=== PATIENT | male | born 1960 | race Caucasian/White ===

== ENCOUNTER 2022-05-12 02:13 | Emergency (ER) | payer MEDICAID ==
[~2022-05-12] VITALS: Ht 175.3 cm; Wt 96.4 kg
[2022-05-12 02:45] LABS: HEMATOCRIT 42.7 % (42.0-52.0); INR 1.3 (0.8-3.0); MEAN CELL VOLUME 93 fl (80.0-100.0); MEAN CORPUSCULAR HEMOGLOBIN 31 pg (27-31); MEAN CORPUSCULAR HGB CONC 33 g/dl (33.0-37.0); MEAN PLATELET VOLUME 10.4 fl (7.4-10.4); PLATELET COUNT 278 K/mm3 (130-400); PROTHROMBIN TIME 15.3 SECONDS (9.7-12.8); RED BLOOD COUNT 4.58 M/mm3 (4.20-5.60); REDCELL DISTRIBUTION WIDTH-CV 13.2 % (11.5-14.5)
[2022-05-12 02:58] LABS: ALANINE AMINOTRANSFERASE 17 U/L (0-55); ALBUMIN 3.1 gm/dL (3.4-4.8); ALKALINE PHOSPHATASE 96 U/L (40-150); ANION GAP 17 mmol/L (7-16); AST,SGOT 18 U/L (5-34); BLOOD UREA NITROGEN 49 mg/dL (8-26); CALCIUM 9.4 mg/dL (8.4-10.2); CARBON DIOXIDE 23 mmol/L (23-31); CHLORIDE 98 mmol/L (98-107); CREATININE, serum 5.72 mg/dL (0.72-1.25); GLUCOSE 89 mg/dL (70-99); LIPASE 8 U/L (8-78); SODIUM 138 mmol/L (136-145); TOTAL PROTEIN 6.8 gm/dL (6.2-8.1)
[2022-05-12 03:05] LABS: ACETAMINOPHEN < 1.0 ug/mL (10-30); ALCOHOL(ethanol),MEDICAL < 10 mg/dL (0-10); POTASSIUM 6.6 mmol/L (3.5-4.5); SALICYLATE < 5.0 mg/dL (15.0-30.0); TROPONIN-I < 0.010 ng/mL (0.00-0.033)
[2022-05-12 03:09] LABS: BAND 11 % (0-10); LYMPHOCYTE 5 % (20.0-51.0); NEUTROPHILS 72 % (42.0-75.2); PLATELET ESTIMATE NORMAL (NORMAL)
[2022-05-12 03:20] LABS: COLLECTION METHOD CLEAN CATCH
[2022-05-12 03:26] LABS: SQUAMOUS EPITHELIAL 0-2 /hpf (0-10); URINE BACTERIA Rare /hpf (NONE SEEN); URINE CALCIUM OXALATE CRYSTAL Present (NOT PRESENT)
[2022-05-12 03:27] LABS: URINE APPEARANCE Clear (CLEAR/HAZY); URINE BLOOD 1+ (NEGATIVE); URINE COLOR Yellow (YELLOW); URINE GLUCOSE Negative (NEGATIVE); URINE KETONE Negative (NEGATIVE); URINE NITRATE Negative (NEGATIVE); URINE PROTEIN(semi-quant) 2+ (NEGATIVE)
--- NOTE | 2022-05-12 03:34 | NUR ---
PATIENT INTUBATED IN ER. VENT CHECK PERFORMED 313. XRAY IN ROOM POST CHECK. RN X2 IN ROOM. AID X1 IN ROOM. RT X2.
[2022-05-12 03:48] LABS: ARTERIAL BLD GAS O2 SATURATION 96.5 % (92-100); ARTERIAL BLD GAS TCO2 CT 19.8; ARTERIAL BLOOD GAS BASE EXCESS -13.4 (-2-2); ARTERIAL BLOOD GAS HCO3 17.8 meq/L (22-26); ARTERIAL BLOOD GAS PO2 114.8 mmHg (80-100)
[2022-05-12 03:49] LABS: ARTERIAL BLOOD GAS PCO2 65.9 mmHg (35-45); ARTERIAL BLOOD GAS pH 7.05 (7.35-7.45)
[2022-05-12 06:07] VITALS: TEMP 97.8
[2022-05-12 07:05] VITALS: BP 111/78; PULSE 76
== END 2022-05-12 07:19 | disposition short-term general hospital (02) ==
LOC: COL.ER 02:13
PROVIDERS: Emergency Medicine
DX: I46.9 Cardiac arrest, cause unspecified (principal); A41.9 Sepsis, unspecified organism; R65.21 Severe sepsis with septic shock; J96.01 Acute respiratory failure with hypoxia; N17.9 Acute kidney failure, unspecified; J18.9 Pneumonia, unspecified organism; J93.9 Pneumothorax, unspecified; E87.2 Acidosis; E87.5 Hyperkalemia; F17.200 Nicotine dependence, unspecified, uncomplicated; Z88.0 Allergy status to penicillin; Z20.822 Contact with and (suspected) exposure to COVID-19; Z28.310 Unvaccinated for COVID-19
CPT/HCPCS: C9113; J0171; J0610; J1720; J1815; J1956; J2250; J2704; J3010; J3370; J7030; J7040; J7060